=== PATIENT | male | born 1950 | race Caucasian/White ===

== ENCOUNTER → 2020-11-10 13:55 | Outpatient (BNVA) | payer MEDICARE, MEDICAID, SELFPAY | PROVIDERS: Family Provider Nurse Practitioner Family; Visit Provider Family Medicine | DX: E53.9 Vitamin B deficiency, unspecified (principal); E78.2 Mixed hyperlipidemia; I10 Essential (primary) hypertension; K21.9 Gastro-esophageal reflux disease without esophagitis; R10.9 Unspecified abdominal pain; G89.29 Other chronic pain; G47.00 Insomnia, unspecified | CPT/HCPCS: 80053; 80061; 82607; 84443; 85025 ==

== ENCOUNTER 2020-11-18 11:18 | Outpatient (CLI) | payer MEDICARE, MEDICAID, SELFPAY ==
--- NOTE | 2020-11-18 11:46 | XR_ITS ---
WS: [id number] XR cervical spine 3V* [id number] REASON FOR EXAM: G89.29 - Other chronic pain FINDINGS: Density of the patient's bone structure appears to be diminished. Previous cervical fusion C6-C7 with posterior pedicle screws C5-T1. Surgical appliances and bony structure of the cervical spine appear properly aligned. No compression deformities and normal intervertebral disc spaces C2-C6. XR/XR cervical spine 3V* [id number] IMPRESSION: Postop cervical fusion C6-C7 with no abnormality identified.
--- NOTE | 2020-11-18 11:46 | XR_ITS ---
WS: [id number] XR hip LT 2-3V wo/w pel* [id number] REASON FOR EXAM: M25.552 - Pain in left hip FINDINGS: Total left hip joint replacement. The components of the prosthesis are intact and properly aligned. No bone or soft tissue abnormality is identified. No fracture or signs of loosening. XR/XR hip LT 2-3V wo/w pel* [id number] IMPRESSION: Total left hip replacement without abnormality.
== END 2020-11-18 11:19 | disposition home or self-care (01) ==
LOC: LAB 11:22 → RAD 11:38
PROVIDERS: PCP Family Medicine; Visit Provider Family Medicine
DX: M54.2 Cervicalgia; M25.552 Pain in left hip; G89.29 Other chronic pain; Z96.642 Presence of left artificial hip joint; M43.22 Fusion of spine, cervical region
CPT/HCPCS: 72040; 73502